=== PATIENT | male | born 1990 | race Caucasian/White ===

== ENCOUNTER 2018-03-04 00:22 | Emergency (ER) | payer MEDICAID, SELFPAY ==
[2018-03-04 00:22] VITALS: BP 142/87; PULSE 86; RESP 20; TEMP 36.7; O2SAT 98; BMI 31.8
--- NOTE | 2018-03-04 00:56 | EKG12_ITS ---
Test Reason : SUICIDAL Blood Pressure : / mmHG Vent. Rate : 069 BPM Atrial Rate : 069 BPM P-R Int : 154 ms QRS Dur : 096 ms QT Int : 370 ms P-R-T Axes : 049 076 047 degrees QTc Int : 396 ms Normal sinus rhythm Normal ECG Confirmed by ANAIS HSU, ADRIAN ([id number]), video editor BUDDY LITTLE ([id number]) on 03/06/2018 2:08:05 PM Referred By: YASMINE Confirmed By:ADRIAN MANZO MD
[2018-03-04 01:13] LABS: Absolute Lymphocyte Count 2.19 X10^3/ul (0.83-4.51); Absolute Neutrophil Count 8.2 X10^3/uL (2.0-7.7); Basophil# 0.03 X10^3/uL; Basophil% 0.3 % (0-1); Eosinophil# 0.21 X10^3/uL; Eosinophils% 1.8 % (0-5); Hemoglobin 15.3 g/dl (13.0-16.5); Lymphocyte # 2.19 X10^3/ul (4.0); Lymphocyte % 19.2 % (19-41); Mean Corpuscular Hgb 30.7 pg (27.0-32.0); Mean Corpuscular Volume 90.2 fL (80-94); Mean Platelet Vol. 9.1 fl (6.2-12.0); Monocyte# 0.74 X10^3/uL; Monocyte% 6.5 % (0-10); Neutrophil # 8.22 X10^3/uL (2.7-7.7); Platelet Count 243 K/mm3 (150-450); RBC Distribution Width CV 12.7 % (11.6-14.6); RBC Distribution Width SD 41.5 fl (35.1-43.9); Red Blood Count 4.99 M/mm3 (4.6-6.2); White Blood Count 11.4 K/mm3 (4.4-11.0)
[2018-03-04 01:14] LABS: POSITIVE COUNT NO; POSITIVE DIFFERENTIAL NO; POSITIVE MORPHOLOGY NO
[2018-03-04 01:21] LABS: Vista UDS pH Range 6
[2018-03-04 01:29] LABS: ALB/GLOB Ratio 1.4 RATIO (0.9-2.4); AST(SGOT) 17 U/L (15-37); Alanine Aminotransfer ALT/SGPT 30 U/L (16-61); Albumin, Serum 4.3 g/dL (3.2-5.0); Alkaline Phosphatase 62 U/L (45-117); Anion Gap 9 (5-15); BUN 12 mg/dL (7-18); BUN/Creat Ratio 13.1 RATIO (10-20); Calcium,Total 9.4 mg/dL (8.5-10.1); Chloride 109 mmol/L (98-107); Creatinine, Serum 0.92 mg/dL (0.70-1.30); EST Glomerular Filtration Rate 106 mL/min (>60); Est Glom Filt Rate - Afr Amer 129 mL/min (>60); Estimated Creatinine Clearance 134.72 ml/min; Globulin 3.1 g/dL (2.2-4.2); Glucose 86 mg/dL (74-106); Potassium 3.6 mmol/L (3.5-5.1); Protein, Total 7.4 g/dL (6.4-8.2); Sodium Level 142 mmol/L (136-145)
[2018-03-04 01:40] LABS: Amphetamine Urine VISTA NEGATIVE (<1000 ng/mL); Barbiturate Urine VISTA NEGATIVE (< 200 ng/mL); Benzodiazepine Urine VISTA NEGATIVE (< 200 ng/mL); Cocaine Urine VISTA NEGATIVE (< 300 ng/mL); Ecstacy Urine VISTA NEGATIVE (< 500 ng/mL); Methadone Urine VISTA NEGATIVE (< 300 ng/mL); PCP Urine VISTA NEGATIVE (< 25 ng/mL); THC Urine VISTA POSITIVE (< 50 ng/mL)
[2018-03-04 01:49] LABS: Alcohol, Blood (Medical)-Serum < 3.0 mg/dL
[2018-03-04 01:54] VITALS: RESP 14
--- NOTE | 2018-03-04 01:54 | ED.RN ---
called counseling center
[2018-03-04 01:59] LABS: Bacteria 0 SEEN /hpf (None Seen); Color, Urine Yellow (Yellow); Glucose, Dipstick Normal (Normal); Ketone-Dipstick 15 mg/dl (Negative); Leukocyte Esterase-Dipstick 25 /ul (Negative); Nitrite-Dipstick Negative (Negative); Occult Blood-Urine Negative /ul (Negative); Protein-Dipstick 30 mg/dl (Negative); Red Blood Cells-Urine 0 SEEN /hpf (0-5); Specific Gravity, Urine 1.025 (1.002-1.030); Squamous Epithelial Cells - UA 0 SEEN /hpf (0-5); Urine Clarity Clear (Clear); Urine Urobilinogen 4 mg/dl (Normal)
[2018-03-04 02:00] LABS: Urine Bilirubin Dipstick 1 mg/dL (Negative)
--- NOTE | 2018-03-04 02:05 | ED.VISSUMM ---
- ER Visit Summary Date of Service: 03/04/18 Chief Complaint: Suicidal History of Present Illness: The patient is a 27 M with suicidal ideation. The patient has a psychiatric history but cannot tell me his official diagnosis. He says he has been hearing voices for months. They have been recently telling him to kill himself. He had a rope ready tonight and was going to hang himself. He thought of his family, his daughter, and he walks here for help. Physical Examination: Afebrile and vital signs unremarkable. Head and neck atraumatic. Heart regular. Lungs clear. No focal or lateralizing neurologic findings. Poor eye contact and depressed mood. Flat affect. Test Results: Laboratory studies all fairly unremarkable. Positive for THC. Negative for alcohol. EKG sinus rhythm at a rate of 69. Urinalysis pending at the time of this dictation. Urinalysis showed elevated white cells. Will be treated with Keflex. Emergency Department Course and Treatment: Patient had suicide precautions and will need further inpatient care. Crisis counselor will evaluate for transfer to a psychiatric facility. He is medically cleared for transfer. Treatment Plan: As above Disposition: Transfer pending crisis evaluation Impression: 1. Suicidal ideation 2. UTI This note was generated with [employer] dictation software. It may contain incorrect words, spelling, and punctuation that were not noted in review of the chart prior to signing ED Disposition - Plan for ED Patient: Chief Complaint: Suicidal Referrals: Care Physician,No Primary [Primary Care Provider] -
[2018-03-04 02:17] LABS: Mucous, Urine 4+ /hpf (<or=2+); White Blood Cells 5-10 SEEN /hpf (0-5)
--- NOTE | 2018-03-04 02:43 | ED.DEP ---
ED Disposition - Plan for ED Patient: Chief Complaint: Suicidal Prescriptions: Cephalexin [Keflex] 500 mg PO Q6 #20 cap Referrals: Care Physician,No Primary [Primary Care Provider] -
[2018-03-04] MEDS: Cephalexin 250 MG Capsule 500 MG PO (03:18)
[2018-03-04 07:19] VITALS: BP 126/57; PULSE 77; RESP 15; O2SAT 95
--- NOTE | 2018-03-04 08:56 | NURSING ---
CALLED [facility], TALKED TO SHELLY. PATIENT MAY HAVE A BED IN ABOUT 2 HRS.
[2018-03-04 10:00] VITALS: BP 139/55; PULSE 58; RESP 16; O2SAT 99
--- NOTE | 2018-03-04 10:13 | NURSING ---
CALLED [facility] FOR TRANSPORT. ETA 30 TO 45 MIN
--- NOTE | 2018-03-04 10:14 | ED.RN ---
CALLED REPORT TO [facility]. REPORT GIVEN TO SUSAN MUNIZ
[2018-03-04 11:00] VITALS: RESP 16
--- NOTE | 2018-03-04 11:23 | NURSING ---
CALLED [facility], ETA IS NOW 30 MIN
[2018-03-04 11:41] VITALS: PULSE 90; RESP 16; O2SAT 98
== END 2018-03-04 12:09 ==
PROVIDERS: Emergency Provider Emergency Medicine
DX: R45.851 Suicidal ideations (principal); N39.0 Urinary tract infection, site not specified; F99 Mental disorder, not otherwise specified; F12.90 Cannabis use, unspecified, uncomplicated; Z72.0 Tobacco use
CPT/HCPCS: 80053; 80307; 80320; 81001; 85025; 93005; 99282; G0480

== ENCOUNTER 2018-04-09 23:34 | Emergency (ER) | payer MEDICAID, SELFPAY ==
[2018-04-09 23:35] VITALS: BP 153/100; PULSE 86; RESP 17; TEMP 36.4; O2SAT 100; BMI 30.2
--- NOTE | 2018-04-10 00:26 | RAD_ITS ---
STUDY: X-RAY - RIGHT KNEE REASON FOR EXAM: Male, 27 years old. Posttraumatic right knee pain TECHNIQUE: 3 view(s) of the knee. COMPARISON: None. FINDINGS: Normal visualized distal femur. Normal visualized proximal tibia and fibula. Normal proximal tibiofibular articulation. Normal medial femorotibial compartment. Normal lateral femorotibial compartment. Normal patellofemoral articulation. No knee joint effusion. The soft tissue structures are unremarkable. RAD/Knee 3 Views IMPRESSION: Normal x-ray examination of the knee. Electronically Signed: Mitesh Farmer MD at 1:03 EDT Tel , Service support ,
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
== END 2018-04-10 01:01 | disposition home or self-care (01) ==
PROVIDERS: Emergency Provider Emergency Medicine
DX: S83.91XA Sprain of unspecified site of right knee, initial encounter (principal); X58.XXXA Exposure to other specified factors, initial encounter; Y93.55 Activity, bike riding; Y92.9 Unspecified place or not applicable; Y99.8 Other external cause status; Z53.21 Procedure and treatment not carried out due to patient leaving prior to being seen by health care provider
CPT/HCPCS: 73562; 99281

== ENCOUNTER 2018-08-02 21:44 | Emergency (ER) | payer MEDICAID, SELFPAY ==
[2018-08-02 21:44] VITALS: BP 164/71; PULSE 85; RESP 14; TEMP 36.8; O2SAT 97; BMI 27.8
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
--- NOTE | 2018-08-02 21:55 | ED.DEP ---
ED Disposition - Plan for ED Patient: Disposition: Home or Assisted Living Chief Complaint: Dental Instructions: ED Tooth Pain Prescriptions: Naproxen [Naprosyn] 500 mg PO BID PRN #20 tab Clotrimazole [Antifungal] 113 gm TP BID #1 cream..g. Penicillin V Potassium 500 mg PO 4X/DAY #40 tab Referrals: Care Physician,No Primary [Primary Care Provider] -
[2018-08-02] MEDS: Penicillin Vk 250 MG Tablet 500 MG PO (22:08)
[2018-08-02] MEDS: Naproxen 500 MG Tablet PO (22:09)
[2018-08-02 22:10] VITALS: BP 160/80; PULSE 85; RESP 15; O2SAT 98
== END 2018-08-02 22:27 | disposition home or self-care (01) ==
LOC: ED 22:10
PROVIDERS: Emergency Provider Emergency Medicine
DX: K02.9 Dental caries, unspecified (principal); K03.81 Cracked tooth; B35.4 Tinea corporis; Z72.0 Tobacco use
CPT/HCPCS: 99283